=== PATIENT | female | born 1950 | race Caucasian/White ===

== ENCOUNTER 2016-06-08 08:51 | Day surgery (SDC) | payer MEDICARE ==
[~2016-06-08] VITALS: Ht 165.1 cm; Wt 66.2 kg
[~2016-06-08 08:51] MED LIST: ASPI-482 PO; BUPIVAC MPF-EPI 0.5%-1:200000 30 ML VIAL. ONE; CA C1TAB38 PO; CETI10TA16 PO; EYE15DRO EACHEYE; FENTANYL PF 100 MCG/2 ML VIAL. IV PRN; HYDROMORPHONE 2 MG/ML VIAL. IV PRN; IV RINGERS,LACTATED 1000ML 1,000 ML IV SCH; LIDOCAINE 1% 1 ML SYRINGE. ID PRN; MORPHINE SULFATE 2 MG/ML DISP.SYRIN. IV PRN; MULT-460 PO; NAPR220C PO; OMEG100021 PO; ONDANSETRON PF 4 MG/2 ML VIAL. IV PRN; PANT40TA5 PO; PROCHLORPERAZINE 10 MG/2 ML VIAL. IV PRN; PSYL660P PO; [UNRECOGNIZED DRUG - CODE] PO
[2016-06-08] MEDS ORDERED: MIDAZOLAM HCL 2 MG/2 ML VIAL. ONE (11:16)
[2016-06-08] MEDS ORDERED: FENTANYL PF 100 MCG/2 ML VIAL. ONE ×2 (11:16→12:15)
[2016-06-08] MEDS ORDERED: PROPOFOL 20 ML IV ONE (11:16)
[2016-06-08] MEDS ORDERED: DEXAMETHASONE SOD PHOS 20 MG/5 ML VIAL. ONE (11:16)
[2016-06-08] MEDS ORDERED: ONDANSETRON PF 4 MG/2 ML VIAL. ONE (11:16)
[2016-06-08] MEDS ORDERED: LIDOCAINE 2% 100 MG/5 ML DISP.SYRIN. ONE (11:16)
[2016-06-08] MEDS ORDERED: ROCURONIUM 50 MG/5 ML VIAL. ONE (11:16)
[2016-06-08] MEDS ORDERED: KETOROLAC 60 MG/2 ML SYRINGE FOR OR. ONE (13:26)
[2016-06-08] MEDS ORDERED: NEOSTIGMINE METHYLSULFATE 5 MG/5 ML SYRINGE. ONE (13:28)
[2016-06-08] MEDS ORDERED: GLYCOPYRROLATE 1 MG/5 ML VIAL. ONE (13:28)
[2016-06-08] MEDS ORDERED: OXYC-323 PO (13:37)
[2016-06-08] MEDS ORDERED: DESFLURANE 61 TO 120 MINUTES IH ONE (13:37)
[2016-06-08] MEDS ORDERED: SEVOFLURANE 61 TO 120 MINUTES. IH ONE (13:37)
[2016-06-08] MEDS ORDERED: ONDA4TAB7 PO (13:37)
--- NOTE | 2016-06-08 13:37 | PDOC ---
BRIEF OPERATIVE NOTE Pre-Op Diagnosis BIH lap bih repair with mesh leticia storm ebl 20 ivf 1000 jovon well to rr stable. CARMEN LEAL MD Jun 08, 2016 13:37
[2016-06-08] MEDS ORDERED: OXYCODONE/APAP 5/325 TABLET. PO PRN (14:30)
[2016-06-08 14:46] VITALS: BP 112/39
--- NOTE | 2016-06-09 13:49 | OP ---
DATE OF SURGERY: 06/08/2016 PREOPERATIVE DIAGNOSIS: Bilateral inguinal hernia. POSTOPERATIVE DIAGNOSIS: Bilateral inguinal hernia. PROCEDURE: Laparoscopic bilateral inguinal hernia repair with mesh. SURGEON: Carmen Leal M.D. ANESTHESIA: General. ESTIMATED BLOOD LOSS: 20 mL. IV FLUIDS: 1000 mL. INDICATIONS: The patient is a 66-year-old female who presents with bilateral inguinal hernia. She is here for them to be repaired. FINDINGS: She had a small left-sided direct defect as well as a large cord lipoma and then she had a small right direct defect. DESCRIPTION OF PROCEDURE: After informed consent was obtained, the patient was taken to the operating room and placed in supine position. After adequate induction of general anesthesia, she was prepped and draped in the usual sterile fashion. An umbilical skin incision was made with a scalpel, subcutaneous tissues spread with a hemostat. [facility] was used to grab the fascia and lift it anteriorly. Veress was used to gain access to the peritoneal cavity. Low opening pressures confirmed intraperitoneal placement of the Veress. Pneumoperitoneum to 15 mmHg was established followed by placement of 5 mm port. Two 5 mm ports placed on either side of the midline just about the level of the umbilicus. They were placed under direct vision. Ilioinguinal nerve blocks were performed 1 cm medial and 1 cm inferior to the ASIS both on the left and right side with local anesthetic. The peritoneum on the right side was scored above the ASIS across to the midline with cautery and then the preperitoneal flap developed. The direct defect was reduced on the right side. The peritoneal flap was skeletonized and the dissection face exposed. The dissection extended deep to the Bryson's ligament to expose the femoral space and the flap was skeletonized well proximal on the iliac vessel so that way the mesh could lie flat without shifting or rolling upon reapproximation of the flap. The round ligament was divided to facilitate the dissection. At this point, the dissection was performed on the left side identically. Peritoneum was scored above the ASIS on the left, extended to the midline with cautery. Preperitoneal space was developed. The round ligament was divided. The round ligament on the left had some bleeding that was controlled with a clip headstart teacher. She also had a large cord lipoma that extended into her internal ring. This was reduced and then ligated at its base with a PDS Endoloop. It was excised, removed and sent to pathology for examination. She had a small direct defect on the left as well with flap. When it was completed, was dissected deep to Bryson's ligament. Femoral space was exposed and the flap was skeletonized well proximal on the iliac vessels so the mesh could lie flap without rolling or shifting upon reapproximation of the flap. A large piece of left-sided 3DMax mesh was placed in the preperitoneal space on the left. It was secured to the abdominal wall just above Bryson's ligament along the rectus muscle and along the anterior abdominal wall musculature with the secure strap. No tacks were placed along Bryson's ligament. No tacks were placed deep to iliopubic tract. The mesh covered the internal space, the direct space and the femoral space. The right-sided 3DMax large piece mesh was brought onto the field. Then it was placed in the right preperitoneal space. It covered in indirect space, direct space and the femoral space. It was secured to the pubic tubercle and then along the rectus muscle and then along the anterior abdominal wall. Care was taken to make sure there was no tacks placed beneath the iliopubic tract and along Bryson's ligament. The preperitoneal flap was then reapproximated with a secure strap. At the completion of the reapproximation, the mesh lied flat against the preperitoneal space and against the abdominal wall. It did not shift or roll upon reapproximation of the peritoneal flap. All mesh was covered. There were no defects or gaping in the peritoneal flap closure. Fascial closure device was used to close the fascia at the umbilical incision using 0 Vicryl suture under direct laparoscopic vision. The ports were then removed under direct vision. They were hemostatic. Pneumoperitoneum was desufflated. Skin incisions were closed with 4-0 Monocryl in subcuticular fashion. Sterile dressings were placed. She tolerated the procedure well. There were no apparent complications. She was transferred in stable condition to the recovery room. CARMEN LEAL MD DR: AB/conrado JOB#: [id number] / [id number] ecc NISA MONTANEZ MD
--- NOTE | 2016-06-10 14:01 | PATHOLOGY ---
PATHOLOGY REPORT * * * * * * * * FINAL DIAGNOSIS: Soft tissue, "cord lipoma", removal: - Lipoma. (SKM:ray; d/t: 06/10/2016) REPORT ELECTRONICALLY SIGNED BY: Tru Trejo M.D. DATE/TIME: 06/10/2016 14:01 * * * * * * * * GROSS PATHOLOGY: Received in formalin labeled "Mala Ruiz and cord lipoma," is a segment of lobulated fibroadipose tissue measuring 5.4 x 3.3 x 1.7 cm in maximum dimensions. Sectioning reveals homogeneous, bright yellow cut surfaces. [employer] tissue is submitted in cassette A1. (TTL; 06/09/2016) INITIAL CPT CODE(S): A; 67862 Professional services performed by [facility] [place] [address] Technical services performed by [facility] at [address] [place] [address]. SPECIMEN(S) RECEIVED: A.Cord lipoma CLINICAL HISTORY: Bilateral inguinal hernia PATIENT: MALA RUIZ /AGE: 103/23/1950 (Age: 66) PATIENT #: [id number] ALT CASE #: SPECIMEN COLLECTION DATE: 06/08/2016 SPECIMEN RECEIVED DATE: 06/09/2016 [facility] - [address] [place] [address] - PHONE: [phone] * * * END OF REPORT * * *
== END 2016-06-08 15:13 | disposition home or self-care (01) ==
LOC: SURG 08:51
PROVIDERS: ATTEND Surgery
DX: K40.20 Bilateral inguinal hernia, without obstruction or gangrene, not specified as recurrent (principal); D17.5 Benign lipomatous neoplasm of intra-abdominal organs; K21.9 Gastro-esophageal reflux disease without esophagitis; M19.90 Unspecified osteoarthritis, unspecified site; Z87.39 Personal history of other diseases of the musculoskeletal system and connective tissue; Z72.89 Other problems related to lifestyle
CPT/HCPCS: 49650; C1781; J1100; J1885; J1956; J2250; J2405; J2704; J2710; J3010; J3490; J7120